=== PATIENT | female | born 1955 | race Caucasian/White ===

== ENCOUNTER 2017-10-15 08:02 | Day surgery (SDC) | payer OTHER ==
[2017-10-15] MEDS ORDERED: LIDOCAINE 4% SOLUTION 50 ML BTL (10:10)
[2017-10-15] MEDS ORDERED: MIDAZOLAM 1 MG/ML 2 ML INJ ×2 (11:14→15:22)
[2017-10-15] MEDS ORDERED: FENTAnyl 50 MCG/ML VIAL (11:15)
== END 2017-10-15 12:40 | disposition home or self-care (01) ==
LOC: GIL 08:02
DX: K29.50 Unspecified chronic gastritis without bleeding (principal); D12.2 Benign neoplasm of ascending colon; K57.90 Diverticulosis of intestine, part unspecified, without perforation or abscess without bleeding; K64.4 Residual hemorrhoidal skin tags; K64.8 Other hemorrhoids
CPT/HCPCS: 43239; 88305; 88312